=== PATIENT | female | born 1990 | race Two or more races ===

== ENCOUNTER 2018-08-07 08:58 | Emergency (ER) | payer OTHER ==
[~2018-08-07] VITALS: Ht 180.3 cm; Wt 89.4 kg
[2018-08-07] MEDS ORDERED: ZOFRAN8 MG PO (13:38)
[2018-08-07] MEDS ORDERED: INTESTINEX680 M1 PO (13:38)
[2018-08-07] MEDS ORDERED: ZANTAC150 MG PO (13:38)
== END 2018-08-07 21:52 | disposition home or self-care (01) ==
LOC: ER 08:58
DX: R11.10 Vomiting, unspecified (principal)

== ENCOUNTER 2019-03-15 21:10 | Outpatient (CLI) | payer OTHER ==
[~2019-03-15 21:10] MED LIST: INTESTINEX680 M1 PO; ZANTAC150 MG PO; ZOFRAN8 MG PO
[2019-03-15] MEDS ORDERED: PRENATAL TABLE1 EACH PO (21:46)
[2019-03-16] MEDS ORDERED: IRON325 MG PO (08:55)
== END 2019-03-16 11:45 | disposition home or self-care (01) ==
LOC: OBS/DEL 21:10
DX: O26.893 Other specified pregnancy related conditions, third trimester (principal); R10.2 Pelvic and perineal pain; O35.8XX0 Maternal care for other (suspected) fetal abnormality and damage, not applicable or unspecified; Z34.03 Encounter for supervision of normal first pregnancy, third trimester; O99.013 Anemia complicating pregnancy, third trimester; D64.89 Other specified anemias

== ENCOUNTER 2019-03-27 12:27 | Inpatient (IN) | payer OTHER ==
[~2019-03-27] VITALS: Ht 175.3 cm; Wt 2.7 kg
[~2019-03-27 12:27] MED LIST changes: +IRON325 MG PO; +PRENATAL TABLE1 EACH PO
== END 2019-04-22 14:46 | disposition home or self-care (01) | DRG 785 ==
LOC: OB/GYN 04-03 14:15 → O/R 04-19 07:46 → OB/GYN 04-19 07:46
PROVIDERS: ADMIT Specialist
PROC: 0UL70ZZ Occlusion of Bilateral Fallopian Tubes, Open Approach (ICD-10-PCS; 2019-04-19)
PROC: 4A1HXCZ Monitoring of Products of Conception, Cardiac Rate, External Approach (ICD-10-PCS; 2019-04-19)
PROC: 10D00Z1 Extraction of Products of Conception, Low, Open Approach (ICD-10-PCS; principal; 2019-04-19 07:00)
DX: O82 Encounter for cesarean delivery without indication (principal); Z3A.39 39 weeks gestation of pregnancy; Z37.0 Single live birth; Z30.2 Encounter for sterilization; Z22.330 Carrier of Group B streptococcus